=== PATIENT | male | born 1950 | race Caucasian/White ===

== ENCOUNTER 2018-02-13 07:21 | Day surgery (SDC) | payer BC ==
[2018-02-08 11:25] LABS: BASOPHILS % (AUTO) 0.7 % (0-1); EOSINOPHILS # (AUTO) 0.2 X10'3 (0-0.9); EOSINOPHILS % (AUTO) 3.7 % (0-6); LYMPHOCYTES # (AUTO) 1.4 X10'3 (1.1-4.8); LYMPHOCYTES % (AUTO) 25.8 % (21-51); MEAN CORPUSCULAR VOLUME 85.3 FL (78-98); MEAN PLATELET VOLUME 8.9 FL (7.4-10.4); MONOCYTES # (AUTO) 0.4 X10'3 (0-0.9); MONOCYTES % (AUTO) 7.4 % (2-12); NEUTROPHILS # (AUTO) 3.3 X10'3 (1.8-7.7); NEUTROPHILS % (AUTO) 62.4 % (42-75); PRE OP HEMATOCRIT 43.5 % (42.0-52.0); PRE OP HEMOGLOBIN 14.8 g/dL (14.0-17.9); PRE OP PLATELET COUNT 223 X10'3 (140-440); RED CELL DISTRIBUTION WIDTH 14.7 % (11.5-14.5)
[2018-02-08 11:26] LABS: CLARITY,URINE CLEAR (Clear); COLOR,URINE YELLOW (Yellow); GLUCOSE, URINE NEGATIVE (Neg); KETONES,URINE TRACE mg/dl (Neg); LEUKOCYTE ESTERASE ,URINE NEGATIVE (Neg); NITRITES, URINE NEGATIVE (Neg); OCCULT BLOOD,URINE NEGATIVE (Neg); PROTEIN,URINE NEGATIVE (Neg); UROBILINOGEN,URINE 0.2 E.U/dL (0.2-1.0)
[2018-02-08 11:27] LABS: UA COLLECTION TYPE VOIDED
[2018-02-08 11:45] LABS: ALBUMIN 3.7 G/DL (3.4-5.0); ALBUMIN/GLOBULIN RATIO 1.2 (1.1-1.5); ALKALINE PHOSPHATASE 62 IU/L (46-116); BLOOD UREA NITROGEN 22 MG/DL (7-18); BUN/CREATININE RATIO 23.7 (5.4-32.0); CALCIUM 9.2 MG/DL (8.5-10.1); CHLORIDE 105 MMOL/L (99-107); CREATININE 0.93 MG/DL (0.60-1.10); PRE OP ALT 52 U/L (30-65); PRE OP ANION GAP 1 (8-16); PRE OP AST 25 U/L (10-37); PRE OP BILIRUB, TOTAL 0.4 MG/DL (0.0-1.0); PRE OP GLUCOSE 77 MG/DL (70-104); PRE OP POTASSIUM 3.6 MMOL/L (3.4-5.1); PRE OP SODIUM 139 MMOL/L (135-145); TOTAL PROTEIN 6.8 G/DL (6.4-8.2); eGFR 81 ML/MIN
[2018-02-13] VITALS (10 sets, daily range): BP systolic 120–174; BP diastolic 70–112
[~2018-02-13] VITALS: Ht 167.6 cm; Wt 69.8 kg
[~2018-02-13 07:21] MED LIST: BUPIVAcaine/PF 2.5mg/ml (0.25%) 10ml vial ONE; CITA20TA26 PO; Cefazolin 2GM/50ML dext iso,osmotic IVPB IV ONE; LIDOcaine 1% (10mg/ml) 2ml vial ONE; OLME1TAB54 PO; famotidine 20mg tablet PO ONE; ringers solution, lacted 1,000 ML IV SCH
[2018-02-13] MEDS ORDERED: LIDOcaine 1% (10mg/ml) 2ml vial ONE (07:57)
[2018-02-13] MEDS ORDERED: sevoflurane 250ml liquid IH ONE (08:31)
[2018-02-13] MEDS ORDERED: fentaNYL/PF 50MCG/1 ML 2ML syringe ONE (08:40)
[2018-02-13] MEDS ORDERED: ROPIVAcaine 0.5% (5mg/ml) 30ml vial ONE (08:41)
[2018-02-13] MEDS ORDERED: midazolam 2 mg/2 ml injection ONE (08:41)
[2018-02-13] MEDS ORDERED: propofol inj 20 ML IV ONE (08:41)
[2018-02-13] MEDS ORDERED: morphine 4 MG/ML inj SYRINge IV PRN ×2 (09:05)
[2018-02-13] MEDS ORDERED: ringers solution, lacted 1,000 ML IV SCH (09:05)
[2018-02-13] MEDS ORDERED: meperidine/PF 25mg/ml syringe IV PRN ×2 (09:05)
[2018-02-13] MEDS ORDERED: proCHLORperazine 10 MG/2 ml inj IV PRN (09:05)
[2018-02-13] MEDS ORDERED: ondansetron/PF 4mg/2ml inj IV PRN (09:05)
[2018-02-13] MEDS: meperidine/PF 25mg/ml syringe IV PRN ×2 (10:31→11:03)
[2018-02-13] MEDS ORDERED: HYDROcodone/acetaminophen 10/325mg tab PO ONE (11:05)
[2018-02-14] MEDS ORDERED: FLO0.4C PO (08:44)
== END 2018-02-13 11:17 | disposition home or self-care (01) ==
LOC: PAS 07:21
PROVIDERS: ATTEND Surgery
DX: K64.3 Fourth degree hemorrhoids (principal); K64.4 Residual hemorrhoidal skin tags; F41.9 Anxiety disorder, unspecified; I10 Essential (primary) hypertension; M19.90 Unspecified osteoarthritis, unspecified site; Z96.659 Presence of unspecified artificial knee joint; Z98.890 Other specified postprocedural states; Z87.891 Personal history of nicotine dependence; Z79.899 Other long term (current) drug therapy
CPT/HCPCS: 36415; 46260; 80053; 81003; 85025; 93005; A6224; A6449; J0690; J2175; J2250; J2704; J2795; J3010; J3490; J7120; A7000

== ENCOUNTER 2018-02-14 08:27 | Emergency (ER) | payer MEDICARE, BC ==
[~2018-02-14] VITALS: Ht 167.6 cm; Wt 68.2 kg
[~2018-02-14 08:27] MED LIST changes: -BUPIVAcaine/PF 2.5mg/ml (0.25%) 10ml vial ONE; -Cefazolin 2GM/50ML dext iso,osmotic IVPB IV ONE; -LIDOcaine 1% (10mg/ml) 2ml vial ONE; -famotidine 20mg tablet PO ONE; -ringers solution, lacted 1,000 ML IV SCH
[2018-02-14] MEDS ORDERED: FLO0.4C PO (08:44)
[2018-02-14] MEDS ORDERED: LIDOcaine 2% 10ml TOPICAL JELLY (Urojet) MM ONE (09:00)
[2018-02-14 09:02] LABS: BASOPHILS % (AUTO) 0.1 % (0-1); EOSINOPHILS % (AUTO) 0.1 % (0-6); HEMOGLOBIN 15.1 g/dl (14.0-17.9); LYMPHOCYTES # (AUTO) 0.9 X10'3 (1.1-4.8); LYMPHOCYTES % (AUTO) 7.6 % (21-51); MEAN CORPUSCULAR HEMOGLOBIN 28.8 PG (27.0-31.0); MEAN CORPUSCULAR HGB CONC 34.2 % (33.0-36.5); MEAN CORPUSCULAR VOLUME 84.4 FL (78-98); MEAN PLATELET VOLUME 8.8 FL (7.4-10.4); MONOCYTES # (AUTO) 0.8 X10'3 (0-0.9); MONOCYTES % (AUTO) 6.7 % (2-12); NEUTROPHILS # (AUTO) 10.6 X10'3 (1.8-7.7); NEUTROPHILS % (AUTO) 85.5 % (42-75); PLATELET COUNT 218 X10'3 (140-440); RED BLOOD COUNT 5.22 X10'6 (4.70-6.10); RED CELL DISTRIBUTION WIDTH 14.5 % (11.5-14.5); WHITE BLOOD COUNT 12.4 X10'3 (4.5-11.0)
[2018-02-14 09:17] LABS: ALANINE AMINOTRANSFERASE 35 U/L (12-78); ALBUMIN 3.9 G/DL (3.4-5.0); ALBUMIN/GLOBULIN RATIO 1.1 (1.1-1.5); ALKALINE PHOSPHATASE 71 IU/L (46-116); ANION GAP 9 (8-16); ASPARTATE AMINO TRANSFERASE 16 U/L (10-37); BILIRUBIN,TOTAL 1.2 MG/DL (0.1-1.0); BLOOD UREA NITROGEN 13 MG/DL (7-18); BUN/CREATININE RATIO 13.3 (5.4-32.0); CALCIUM 9.5 MG/DL (8.5-10.1); CHLORIDE 100 MMOL/L (99-107); CREATININE 0.98 MG/DL (0.60-1.10); GLUCOSE 130 MG/DL (70-104); LARGE PLATELETS FEW; PLATELET ESTIMATE NORMAL; POTASSIUM 3.4 MMOL/L (3.5-5.1); SODIUM 135 MMOL/L (135-145); TOTAL CARBON DIOXIDE 25.9 MMOL/L (24-32); TOTAL PROTEIN 7.5 G/DL (6.4-8.2); eGFR 76 ML/MIN
[2018-02-14 09:29] LABS: COLOR,URINE YELLOW (Yellow); GLUCOSE, URINE NEGATIVE (Neg); KETONES,URINE TRACE mg/dl (Neg); LEUKOCYTE ESTERASE ,URINE NEGATIVE (Neg); NITRITES, URINE NEGATIVE (Neg); OCCULT BLOOD,URINE TRACE-INTACT (Neg); PH,URINE 6.5 (4.8-8.0); PROTEIN,URINE NEGATIVE (Neg); UROBILINOGEN,URINE 0.2 E.U/dL (0.2-1.0)
[2018-02-14 09:31] LABS: UA COLLECTION TYPE FOLEY CATH
[2018-02-14 09:34] LABS: CLARITY,URINE CLEAR (Clear)
[2018-02-14 09:35] LABS: BACTERIA,URINE NONE SEEN /HPF (Neg); SQUAMOUS EPITHELIAL CELL,UR NONE SEEN /LPF (FEW); WBC,URINE 0-4 /HPF (0-4)
[2018-02-14 10:36] VITALS: BP 145/85
== END 2018-02-14 10:38 | disposition home or self-care (01) ==
LOC: ER 08:28
DX: N99.89 Other postprocedural complications and disorders of genitourinary system (principal); R11.0 Nausea; Z79.899 Other long term (current) drug therapy
CPT/HCPCS: 36415; 51702; 80053; 81001; 85025; 99284; A4315; A4357